=== PATIENT | male | born 1985 | race Caucasian/White ===

== ENCOUNTER 2018-03-15 19:31 | Emergency (ER) | payer SELFPAY ==
[~2018-03-15] VITALS: Ht 172.7 cm; Wt 72.0 kg
[2018-03-15 19:57] VITALS: BP 152/91; PULSE 60; RESP 20; TEMP 99.6; O2SAT 99
--- NOTE | 2018-03-15 20:13 | PD ---
HPI Chief Complaint: Psychiatric Symptoms Time Seen by Provider: 19:45 Travel History International Travel<30 days: No Contact w/Intl Traveler<30days: No Traveled to known affect area: No History of Present Illness HPI HPI is limited secondary to patient clinical condition and suspected drug intoxication. He is easily arousable, but is slow to talk. 32-year-old male presents to the emergency department via EMS. Apparently the patient walked into the [facility] looking for money. Patient keeps talking about Flacca. He keeps talking about drinking water that had flacca in it. He says "I think I did drugs." He denies being suicidal. Patient is following commands. He is not answering me when I asked him if he is having any chest pain, shortness of breath or abdominal pain. Symptoms are moderate to severe in severity. No known aggravating or relieving factors. Onset unknown. Duration unknown. According to the nurse he said he has history of seizures and has not taken his medication in over 6 months. He told me had allergies to poison eliud. REPLACED BY [facility] Social History Tobacco Use: No Substance Use: Yes Allergies-Medications (Allergen,Severity, Reaction): Coded Allergies: No Known Allergies (Unverified , 03/15/18) Reported Meds & Prescriptions Reported Meds & Active Scripts Active Active Prescriptions or Reported Medications Unobtainable Review of Systems Except as stated in HPI: all other systems reviewed are Neg Physical Exam Narrative GENERAL: Thin, male patient, in no acute distress; lethargic; altered mental status SKIN: Warm and dry. HEAD: Atraumatic. Normocephalic. EYES: Pupils equal and round. Pupils dilated at approximately 5-6 mm; brisk reaction. ENT: Mucosa pink and moist. NECK: Supple. Trachea midline. CARDIOVASCULAR: Regular rate and rhythm. No murmur appreciated. RESPIRATORY: No accessory muscle use. Clear to auscultation. Breath sounds equal bilaterally. GASTROINTESTINAL: Abdomen soft, non-tender, nondistended. Hepatic and splenic margins not palpable. Bowel sounds are active 4 quadrants. MUSCULOSKELETAL: No obvious deformities. No clubbing. No cyanosis. No edema. NEUROLOGICAL: Awake and alert. Oriented 3. No obvious cranial nerve deficits. Motor grossly within normal limits. Normal speech. Moves all extremities. 5/5 strength to all extremities. PSYCHIATRIC: No delusional thought processes. No hallucinations. Data Data Last Documented VS Vital Signs Date Time Temp Pulse Resp B/P (MAP) Pulse Ox O2 Delivery O2 Flow Rate FiO2 03/16/18 04:47 48 20 146/78 (100) 100 Nasal Cannula 2.00 03/15/18 23:40 98.8 Orders Orders Complete Blood Count With Diff (03/15/18 19:45) Comprehensive Metabolic Panel (03/15/18 19:45) Drug Screen, Random Urine (03/15/18 19:45) Alcohol (Ethanol) (03/15/18 19:45) Salicylates (Aspirin) (03/15/18 19:45) Tylenol (Acetaminophen) (03/15/18 19:45) Diet Regular Basic (03/16/18 Breakfast) Sodium Chlor 0.9% 1000 Ml Inj (Ns 1000 M (03/15/18 20:15) Ct Brain W/O Iv Contrast(Rout) (03/15/18 ) Lorazepam Inj (Ativan Inj) (03/15/18 20:45) Creatine Kinase (Cpk) (03/16/18 01:39) Troponin I (03/16/18 01:39) Electrocardiogram (03/16/18 ) Sodium Chlor 0.9% 1000 Ml Inj (Ns 1000 M (03/16/18 06:22) Psych Screen (03/16/18 15:03) Ed Discharge Order (03/16/18 17:27) Labs Laboratory Tests Test 03/15/18 20:30 03/15/18 22:15 03/16/18 01:45 White Blood Count 6.1 TH/MM3 Red Blood Count 4.19 MIL/MM3 Hemoglobin 11.4 GM/DL Hematocrit 34.1 % Mean Corpuscular Volume 81.3 FL Mean Corpuscular Hemoglobin 27.2 PG Mean Corpuscular Hemoglobin Concent 33.4 % Red Cell Distribution Width 15.5 % Platelet Count 273 TH/MM3 Mean Platelet Volume 8.6 FL Neutrophils (%) (Auto) 66.8 % Lymphocytes (%) (Auto) 21.2 % Monocytes (%) (Auto) 10.6 % Eosinophils (%) (Auto) 0.8 % Basophils (%) (Auto) 0.6 % Neutrophils # (Auto) 4.1 TH/MM3 Lymphocytes # (Auto) 1.3 TH/MM3 Monocytes # (Auto) 0.6 TH/MM3 Eosinophils # (Auto) 0.1 TH/MM3 Basophils # (Auto) 0.0 TH/MM3 CBC Comment DIFF FINAL Differential Comment Blood Urea Nitrogen 12 MG/DL Creatinine 0.99 MG/DL Random Glucose 86 MG/DL Total Protein 7.3 GM/DL Albumin 3.7 GM/DL Calcium Level 9.1 MG/DL Alkaline Phosphatase 72 U/L Aspartate Amino Transf (AST/SGOT) 21 U/L Alanine Aminotransferase (ALT/SGPT) 25 U/L Total Bilirubin 0.8 MG/DL Sodium Level 144 MEQ/L Potassium Level 3.7 MEQ/L Chloride Level 110 MEQ/L Carbon Dioxide Level 24.5 MEQ/L Anion Gap 10 MEQ/L Estimat Glomerular Filtration Rate 89 ML/MIN Salicylates Level 2.3 MG/DL Acetaminophen Level LESS THAN 2.0 MCG/ML Ethyl Alcohol Level LESS THAN 3 MG/DL Urine Opiates Screen POS Urine Barbiturates Screen NEG Urine Amphetamines Screen POS Urine Benzodiazepines Screen NEG Urine Cocaine Screen POS Urine Cannabinoids Screen POS Total Creatine Kinase 278 U/L Troponin I LESS THAN 0.02 NG/ML MDM Medical Decision Making Medical Screen Exam Complete: Yes Emergency Medical Condition: Yes Medical Record Reviewed: Yes Differential Diagnosis Drug intoxication, drug overdose, substance abuse Narrative Course 32-year-old male presents with altered mental status. He appears to be intoxicated with drugs. He is lethargic and easily arousable. He is slow to talk. Keeps talking about flacca. Rich ACT initiated. CT head, CBC, CMP, drug screen, alcohol screen, IV, IV fluids ordered. Patient is on cardiopulmonary monitoring being continuously monitored. vital signs stable. She will be monitored and given time to sober up and will be frequently reevaluated. 03/16/2018 1500: Patient is awake and alert. Patient is having paranoid thoughts. He denies being suicidal. He denies his abuse of drugs was an intentional overdose. I feel at this time since the patient is having paranoid thoughts he may be having some drug-induced psychosis and I ordered a psych screen for continued evaluation. 1645: Psych screened the patient and he does not meet admission criteria. 1705: I feel the patient is clinically sober at this time and has been cleared by psychiatry and can be safely discharged. The patient says he does not feel paranoid anymore. He says he realizes he did too many drugs and was having paranoid thoughts. The patient provided bus passes for transportation. Instructed patient to follow up with primary care provider. Patient verbalizes understanding and agreement with treatment plan. Patient is medically cleared and stable for discharge. Discussed reasons to return to the emergency department. Patient agrees with treatment plan. The patients vital signs are stable and the patient is stable for outpatient follow-up and treatment. Patient discharged home, stable and in no acute distress. Diagnosis Primary Impression: Polysubstance abuse Additional Impression: Paranoid behavior Referrals: [facility] (Out patient) [facility] Primary Care Physician Psychiatrist Kevin [facility] Patient Instructions: General Instructions, Polysubstance Abuse (ED) Additional Instructions: Contract safety to your self and others Stop using drugs Follow-up in the community for support, such as with Narcotics Anonymous Follow-up with psychiatry Follow-up with primary care provider Follow-up with Guille Phelps Return to the emergency department immediately with worsening of symptoms Med/Other Pt SpecificInfo: No Change to Meds, No Meds Exist/No RX given Scripts Unable to Obtain Active Prescriptions or Reported Meds Disposition: 01 DISCHARGE HOME Condition: Stable Zelda Chandler Mar 15, 2018 20:13
[2018-03-15] MEDS ORDERED: SODIUM CHLOR 0.9% 1000 ML INJ 1,000 ML IV ONE (20:15)
[2018-03-15] MEDS ORDERED: LORazepam 2 MG/ML VIAL IV PUSH ONE (20:45)
[2018-03-15 20:57] VITALS: BP 136/84; PULSE 61; RESP 20; O2SAT 99
--- NOTE | 2018-03-15 21:14 | RADRPT ---
EXAM DATE: 03/15/2018 9:03 PM EDT AGE/SEX: 32 years / Male INDICATIONS: Fell and hit head, altered mental status. CLINICAL DATA: This is the patient's initial encounter. Patient reports that signs and symptoms have been present for 1 day and indicates a pain score of 0/10. MEDICAL/SURGICAL HISTORY: Cardiovascular disease. Congestive heart failure. Hypertension. AFIB, Skin cancer. CABG. RADIATION DOSE: 66.38 CTDI (mGy) COMPARISON: No prior [facility] exams available for comparison. TECHNIQUE: CT of the head without contrast. Using automated exposure control and adjustment of the mA and/or kV according to patient size, radiation dose was kept as low as reasonably achievable to ob tain optimal diagnostic quality images. FINDINGS: Cerebrum: The ventricles are normal for age. No evidence of midline shift, mass lesion, hemorrhage or acute infarction. No extraaxial fluid collections are seen. Posterior Fossa: The cerebellum and brainstem are intact. The 4th ventricle is midline. The cerebe llopontine angle is unremarkable. Extracranial: The visualized portion of the orbits is intact. Skull: The calvaria is intact. No evidence of skull fracture. CONCLUSION: 1. Negative CT Head non contrast. Electronically signed by: Lio Alonzo MD 03/15/2018 9:13 PM EDT
[2018-03-15 21:25] LABS: AUTOMATED NEUTROPHIL # 4.1 TH/MM3 (1.8-7.7); BASOPHIL % 0.6 % (0.0-2.0); EOSINOPHIL # 0.1 TH/MM3 (0-0.4); EOSINOPHIL % 0.8 % (0.0-4.0); HEMATOCRIT 34.1 % (39.0-51.0); HEMOGLOBIN 11.4 GM/DL (13.0-17.0); LYMPH % 21.2 % (9.0-44.0); LYMPHOCYTE # 1.3 TH/MM3 (1.0-4.8); MEAN CELL VOLUME 81.3 FL (80.0-100.0); MEAN CORPUSCULAR HEMOGLOBIN 27.2 PG (27.0-34.0); MEAN CORPUSCULAR HGB CONC 33.4 % (32.0-36.0); MEAN PLATELET VOLUME 8.6 FL (7.0-11.0); MONO % 10.6 % (0.0-8.0); MONOCYTE # 0.6 TH/MM3 (0-0.9); NEUT % 66.8 % (16.0-70.0); PLATELET COUNT 273 TH/MM3 (150-450); RED BLOOD COUNT 4.19 MIL/MM3 (4.50-5.90); RED CELL DISTRIBUTION WIDTH 15.5 % (11.6-17.2); WHITE BLOOD COUNT 6.1 TH/MM3 (4.0-11.0)
[2018-03-15 21:43] LABS: ALBUMIN 3.7 GM/DL (3.4-5.0); BICARBONATE 24.5 MEQ/L (21.0-32.0); BLOOD UREA NITROGEN 12 MG/DL (7-18); CALCIUM 9.1 MG/DL (8.5-10.1); CHLORIDE 110 MEQ/L (98-107); CREATININE 0.99 MG/DL (0.60-1.30); GLOMERULAR FILTRATION RATE 89 ML/MIN (>89); GLUCOSE,RANDOM 86 MG/DL (74-106); SODIUM (NA) 144 MEQ/L (136-145)
[2018-03-15 21:44] LABS: AST (GOT) 21 U/L (15-37)
[2018-03-15 21:46] LABS: ALKALINE PHOSPHATASE 72 U/L (45-117); ALT (GPT) 25 U/L (12-78); TOTAL BILIRUBIN ADULT 0.8 MG/DL (0.2-1.0); TOTAL PROTEIN 7.3 GM/DL (6.4-8.2)
[2018-03-15 21:49] LABS: ACETAMINOPHEN LESS THAN 2.0 MCG/ML (10.0-30.0)
[2018-03-15 21:59] VITALS: BP 143/78; PULSE 58; RESP 20; O2SAT 97
--- NOTE | 2018-03-15 22:03 | PD ---
Physical Exam Date Seen by Provider: Mar 15, 2018 Time Seen by Provider: 22:02 Narrative 32-year-old male was brought in by EMS after being found delusional and talking tangential thoughts. He is homeless. When he was brought in he was interviewed by the nurse practitioner I am supervising her. He did mention to her about possibly using Flacca. He had been jittery and combative at times. A workup for psych/drug related issues was initiated along with a head CT. She had left and signed out the case over to me. Blood test results are back and within normal limit. Urine drug screen is pending. Patient was given IV Ativan for his combativeness. Currently he has come down. Head CT is within normal limit as well. He was made a Marchman's Act. There is a psych screen pending for him for the morning. He is medically cleared. Data Data Last Documented VS Vital Signs Date Time Temp Pulse Resp B/P (MAP) Pulse Ox O2 Delivery O2 Flow Rate FiO2 03/16/18 18:09 03/16/18 04:47 48 20 100 Nasal Cannula 2.00 03/15/18 23:40 98.8 Orders Orders Complete Blood Count With Diff (03/15/18 19:45) Comprehensive Metabolic Panel (03/15/18 19:45) Drug Screen, Random Urine (03/15/18 19:45) Alcohol (Ethanol) (03/15/18 19:45) Salicylates (Aspirin) (03/15/18 19:45) Tylenol (Acetaminophen) (03/15/18 19:45) Diet Regular Basic (03/16/18 Breakfast) Sodium Chlor 0.9% 1000 Ml Inj (Ns 1000 M (03/15/18 20:15) Ct Brain W/O Iv Contrast(Rout) (03/15/18 ) Lorazepam Inj (Ativan Inj) (03/15/18 20:45) Creatine Kinase (Cpk) (03/16/18 01:39) Troponin I (03/16/18 01:39) Electrocardiogram (03/16/18 ) Sodium Chlor 0.9% 1000 Ml Inj (Ns 1000 M (03/16/18 06:22) Psych Screen (03/16/18 15:03) Ed Discharge Order (03/16/18 17:27) Labs Laboratory Tests Test 6/3/18 20:30 03/15/18 22:15 03/16/18 01:45 White Blood Count 6.1 TH/MM3 Red Blood Count 4.19 MIL/MM3 Hemoglobin 11.4 GM/DL Hematocrit 34.1 % Mean Corpuscular Volume 81.3 FL Mean Corpuscular Hemoglobin 27.2 PG Mean Corpuscular Hemoglobin Concent 33.4 % Red Cell Distribution Width 15.5 % Platelet Count 273 TH/MM3 Mean Platelet Volume 8.6 FL Neutrophils (%) (Auto) 66.8 % Lymphocytes (%) (Auto) 21.2 % Monocytes (%) (Auto) 10.6 % Eosinophils (%) (Auto) 0.8 % Basophils (%) (Auto) 0.6 % Neutrophils # (Auto) 4.1 TH/MM3 Lymphocytes # (Auto) 1.3 TH/MM3 Monocytes # (Auto) 0.6 TH/MM3 Eosinophils # (Auto) 0.1 TH/MM3 Basophils # (Auto) 0.0 TH/MM3 CBC Comment DIFF FINAL Differential Comment Blood Urea Nitrogen 12 MG/DL Creatinine 0.99 MG/DL Random Glucose 86 MG/DL Total Protein 7.3 GM/DL Albumin 3.7 GM/DL Calcium Level 9.1 MG/DL Alkaline Phosphatase 72 U/L Aspartate Amino Transf (AST/SGOT) 21 U/L Alanine Aminotransferase (ALT/SGPT) 25 U/L Total Bilirubin 0.8 MG/DL Sodium Level 144 MEQ/L Potassium Level 3.7 MEQ/L Chloride Level 110 MEQ/L Carbon Dioxide Level 24.5 MEQ/L Anion Gap 10 MEQ/L Estimat Glomerular Filtration Rate 89 ML/MIN Salicylates Level 2.3 MG/DL Acetaminophen Level LESS THAN 2.0 MCG/ML Ethyl Alcohol Level LESS THAN 3 MG/DL Urine Opiates Screen POS Urine Barbiturates Screen NEG Urine Amphetamines Screen POS Urine Benzodiazepines Screen NEG Urine Cocaine Screen POS Urine Cannabinoids Screen POS Total Creatine Kinase 278 U/L Troponin I LESS THAN 0.02 NG/ML MDM Supervised Visit with GENEVIEVE: Yes Diagnosis Primary Impression: Altered mental status Qualified Codes: R41.82 - Altered mental status, unspecified Scripts Unable to Obtain Active Prescriptions or Reported Meds Maya Baumann MD Mar 15, 2018 22:03
[2018-03-15 23:40] VITALS: BP 132/80; PULSE 44; RESP 20; TEMP 98.8; O2SAT 98
--- NOTE | 2018-03-16 01:42 | PD ---
Data Data Last Documented VS Vital Signs Date Time Temp Pulse Resp B/P (MAP) Pulse Ox O2 Delivery O2 Flow Rate FiO2 03/16/18 18:09 03/16/18 04:47 48 20 100 Nasal Cannula 2.00 03/15/18 23:40 98.8 Orders Orders Complete Blood Count With Diff (03/15/18 19:45) Comprehensive Metabolic Panel (03/15/18 19:45) Drug Screen, Random Urine (03/15/18 19:45) Alcohol (Ethanol) (03/15/18 19:45) Salicylates (Aspirin) (03/15/18 19:45) Tylenol (Acetaminophen) (03/15/18 19:45) Diet Regular Basic (03/16/18 Breakfast) Sodium Chlor 0.9% 1000 Ml Inj (Ns 1000 M (03/15/18 20:15) Ct Brain W/O Iv Contrast(Rout) (03/15/18 ) Lorazepam Inj (Ativan Inj) (03/15/18 20:45) Creatine Kinase (Cpk) (03/16/18 01:39) Troponin I (03/16/18 01:39) Electrocardiogram (03/16/18 ) Sodium Chlor 0.9% 1000 Ml Inj (Ns 1000 M (03/16/18 06:22) Psych Screen (03/16/18 15:03) Ed Discharge Order (03/16/18 17:27) Labs Laboratory Tests Test 03/15/18 20:30 03/15/18 22:15 03/16/18 01:45 White Blood Count 6.1 TH/MM3 Red Blood Count 4.19 MIL/MM3 Hemoglobin 11.4 GM/DL Hematocrit 34.1 % Mean Corpuscular Volume 81.3 FL Mean Corpuscular Hemoglobin 27.2 PG Mean Corpuscular Hemoglobin Concent 33.4 % Red Cell Distribution Width 15.5 % Platelet Count 273 TH/MM3 Mean Platelet Volume 8.6 FL Neutrophils (%) (Auto) 66.8 % Lymphocytes (%) (Auto) 21.2 % Monocytes (%) (Auto) 10.6 % Eosinophils (%) (Auto) 0.8 % Basophils (%) (Auto) 0.6 % Neutrophils # (Auto) 4.1 TH/MM3 Lymphocytes # (Auto) 1.3 TH/MM3 Monocytes # (Auto) 0.6 TH/MM3 Eosinophils # (Auto) 0.1 TH/MM3 Basophils # (Auto) 0.0 TH/MM3 CBC Comment DIFF FINAL Differential Comment Blood Urea Nitrogen 12 MG/DL Creatinine 0.99 MG/DL Random Glucose 86 MG/DL Total Protein 7.3 GM/DL Albumin 3.7 GM/DL Calcium Level 9.1 MG/DL Alkaline Phosphatase 72 U/L Aspartate Amino Transf (AST/SGOT) 21 U/L Alanine Aminotransferase (ALT/SGPT) 25 U/L Total Bilirubin 0.8 MG/DL Sodium Level 144 MEQ/L Potassium Level 3.7 MEQ/L Chloride Level 110 MEQ/L Carbon Dioxide Level 24.5 MEQ/L Anion Gap 10 MEQ/L Estimat Glomerular Filtration Rate 89 ML/MIN Salicylates Level 2.3 MG/DL Acetaminophen Level LESS THAN 2.0 MCG/ML Ethyl Alcohol Level LESS THAN 3 MG/DL Urine Opiates Screen POS Urine Barbiturates Screen NEG Urine Amphetamines Screen POS Urine Benzodiazepines Screen NEG Urine Cocaine Screen POS Urine Cannabinoids Screen POS Total Creatine Kinase 278 U/L Troponin I LESS THAN 0.02 NG/ML MDM Medical Record Reviewed: Yes Supervised Visit with GENEVIEVE: No Narrative Course 0130: See previous providers notes for complete history of present illness. I was asked to reevaluate this patient as he was noted to be bradycardic. Patient initially came in with altered mental status, found in a restaurant. He was placed under a Gómez act by the previous provider. His lab work revealed drug screen positive for opiates, amphetamines, cocaine and cannabinoids. Heart rate is currently hovering around 40. Blood pressure is stable. Patient still quite altered, unable to answer any pertinent questions. EKG reveals sinus bradycardia with a rate of 41, T-wave inversions noted in V1 and V2, reviewed by my attending. At this point time the plan is to further monitor the patient. Diagnosis Primary Impression: Altered mental status Qualified Codes: R41.82 - Altered mental status, unspecified Scripts Unable to Obtain Active Prescriptions or Reported Meds Sandip Art Mar 16, 2018 01:42
[2018-03-16 01:51] VITALS: BP 148/88; PULSE 43; RESP 16; O2SAT 100
[2018-03-16 02:10] LABS: TROPONIN I LESS THAN 0.02 NG/ML (0.02-0.05)
[2018-03-16 02:25] VITALS: BP 142/86; PULSE 46; RESP 20; O2SAT 100
[2018-03-16 03:08] VITALS: BP 153/94; PULSE 50; RESP 20; O2SAT 100
[2018-03-16 04:47] VITALS: BP 146/78; PULSE 48; RESP 20; O2SAT 100
[2018-03-16] MEDS ORDERED: SODIUM CHLOR 0.9% 1000 ML INJ 1,000 ML IV SCH (06:22)
--- NOTE | 2018-03-16 09:48 | EKG ---
Date Performed: 03/16/2018 Time Performed: 01:30:34 PTAGE: 32 years EKG: Rhythm appears to be sinus with an electronic atrial pacemaker also present. The pacemaker does not appear to be capturing the atrium. Left ventricular hypertrophy Nonspecific T wave changes A BNORMAL ECG NO PREVIOUS TRACING FOR COMPARISON DOCTOR: Carlo Maguire Interpretating Date/Time 03/16/2018 09:46:46
== END 2018-03-16 18:10 | disposition home or self-care (01) ==
LOC: NEPD 19:31
DX: R41.82 Altered mental status, unspecified (principal); R00.1 Bradycardia, unspecified; F11.90 Opioid use, unspecified, uncomplicated; F15.90 Other stimulant use, unspecified, uncomplicated; F14.90 Cocaine use, unspecified, uncomplicated; F12.90 Cannabis use, unspecified, uncomplicated; I51.7 Cardiomegaly; R94.31 Abnormal electrocardiogram [ECG] [EKG]; F60.0 Paranoid personality disorder
CPT/HCPCS: 70450; 80053; 80307; 82550; 84484; 85025; 93005; 96361; 96374; 99285; J2060; J7030